=== PATIENT | male | born 1955 | race African-American/Black ===

== ENCOUNTER 2023-10-09 07:27 | Outpatient (REF) | payer SELFPAY ==
--- NOTE | ~2023-10-09 | XR_ITS ---
EXAMINATION: XR KNEE, LEFT XR HIP, LEFT CLINICAL INFORMATION: Pain in left knee. COMPARISON: None available. TECHNIQUE: Frog-lateral view of the left hip. 3 AP views of bilateral hips. 3 views of the left knee. FINDINGS: LEFT KNEE: Heart joint effusion. Left knee total arthroplasty. Hardware appears intact. Alignment is satisfactory. LEFT HIP: Minimal images of the lower spine demonstrate inferior aspect of spinal hardware. Moderate degenerative changes in the left sacroiliac joint greater than right. 3 AP views of the right hip demonstrate total knee arthroplasty which appears intact on views provided. Calcific/ossific densities in the soft tissues lateral to the right acetabulum. Lateral and 3 AP views of the left hip demonstrate left total hip arthroplasty which appears intact and in satisfactory alignment. Pubic symphysis is maintained. XR/XR knee LT 3V IMPRESSION: 1. Left knee total arthroplasty. Hardware appears intact. Alignment is satisfactory. 2. Left total hip arthroplasty appears intact and in satisfactory alignment. 3. Moderate degenerative changes left sacroiliac joint.
--- NOTE | ~2023-10-09 | XR_ITS ---
EXAMINATION: XR KNEE, LEFT XR HIP, LEFT CLINICAL INFORMATION: Pain in left knee. COMPARISON: None available. TECHNIQUE: Frog-lateral view of the left hip. 3 AP views of bilateral hips. 3 views of the left knee. FINDINGS: LEFT KNEE: Heart joint effusion. Left knee total arthroplasty. Hardware appears intact. Alignment is satisfactory. LEFT HIP: Minimal images of the lower spine demonstrate inferior aspect of spinal hardware. Moderate degenerative changes in the left sacroiliac joint greater than right. 3 AP views of the right hip demonstrate total knee arthroplasty which appears intact on views provided. Calcific/ossific densities in the soft tissues lateral to the right acetabulum. Lateral and 3 AP views of the left hip demonstrate left total hip arthroplasty which appears intact and in satisfactory alignment. Pubic symphysis is maintained. XR/XR hip LT min 2V IMPRESSION: 1. Left knee total arthroplasty. Hardware appears intact. Alignment is satisfactory. 2. Left total hip arthroplasty appears intact and in satisfactory alignment. 3. Moderate degenerative changes left sacroiliac joint.
== END 2023-10-09 07:28 | disposition home or self-care (01) ==
LOC: HO.HOSX 07:27
PROVIDERS: Visit Provider Orthopaedic Surgery
DX: M25.562 Pain in left knee (principal); M25.552 Pain in left hip
CPT/HCPCS: 73502; 73562; 99202

== ENCOUNTER 2023-10-09 09:19 | Outpatient (AMB) | payer MEDICARE, SELFPAY ==
--- NOTE | 2023-10-09 09:22 | MHC.OFFVIS ---
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 Patient reports he is here for a second opinion. The patient states that he has been told that could undergo revision surgery which may or may not relieve his symptoms. He denies any fevers or chills. The patient states that ?I feel like something is wrong with the knee?. Allergies morphine Allergy (Intermediate, Verified 10/09/23 09:48) Itching aspirin Allergy (Mild, Verified 10/09/23 09:48) Unknown [facility] Surgical History (Updated 10/09/23 @ 09:52 by Johana Medellin CMA) History of back surgery Hx of right knee surgery Hx of left knee surgery History of hip surgery History of hip surgery (~07/2021) Social History (Updated 10/09/23 @ 09:50 by Johana Medellin CMA) Patient Tobacco Use Status: Current everyday Tobacco user Current occupational status: retired Current occupation: Right hand dominate Physical Exam Vital Signs: BMI result Body Mass Index 24.0 Const Other: Well-nourished well-developed very friendly male awake alert and oriented x3 in no acute distress Extrem Other: Bilateral lower extremity examination shows good capillary refill, no skin lesions noted, normal sensation light touch Left knee examination shows the surgical incision is well healed, no erythema, a minimal effusion, range of motion from -10 degrees to 90 degrees, no instability Results Reviewed Results Reviewed: X-rays of the patient's left knee show a total knee arthroplasty in good position with no signs of loosening, no acute bony abnormalities Assessment & Plan Assessment & Plan (1) Left knee pain: Code(s): M25.562 - Pain in left knee Category: Medical Plan Mr. Banerjee presents with continued discomfort after undergoing left total knee replacement surgery at [facility] in 2021. The patient does have a fairly significant flexion contracture. I discussed with the patient the options of seeing Dr. Morales for a possible nerve injection procedure versus being evaluated by Dr. Etienne for possible scar removal and possible implant revision surgery. The patient states that he would like to see Dr. Etienne. Thus, I will arrange for that appointment. He will follow-up as instructed. Feel free to call me at any time should questions regarding his orthopedic management arise. I spent 22 minutes in reviewing the patient's records and imaging studies, seeing the patient and documenting in the medical record. Orders: Orders XR hip LT min 2V Today M25.552 - Pain in left hip XR knee LT 3V Today M25.562 - Pain in left knee Coding Level of Care Code New Pt Level 2 (03146) Diagnoses Left knee pain M25.562
[2023-10-09 09:43] VITALS: BMI 24.0
== END 2023-10-09 10:01 | disposition home or self-care (01) ==
PROVIDERS: Visit Provider Orthopaedic Surgery
DX: M25.562 Pain in left knee (principal)
CPT/HCPCS: 99202

== ENCOUNTER 2023-10-24 08:58 | Outpatient (AMB) | payer MEDICARE, SELFPAY ==
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
[2023-10-24 09:02] VITALS: BMI 24.0
== END 2023-10-24 09:23 | disposition home or self-care (01) ==
PROVIDERS: Visit Provider Orthopaedic Surgery
DX: M24.569 Contracture, unspecified knee (principal); D36.10 Benign neoplasm of peripheral nerves and autonomic nervous system, unspecified
CPT/HCPCS: 99214

== ENCOUNTER → 2023-10-24 08:58 | Outpatient (BNVA) | payer MEDICARE, SELFPAY | PROVIDERS: Visit Provider Orthopaedic Surgery | DX: M24.569 Contracture, unspecified knee (principal); D36.10 Benign neoplasm of peripheral nerves and autonomic nervous system, unspecified | CPT/HCPCS: 99212 ==

== ENCOUNTER 2024-01-17 12:31 | Outpatient (REF) | payer MEDICARE, SELFPAY ==
--- NOTE | ~2024-01-17 | XR_ITS ---
EXAMINATION: XR SHOULDER, RIGHT CLINICAL INFORMATION: Pain in right shoulder COMPARISON: None available. TECHNIQUE: Three views of the right shoulder. FINDINGS: Moderate to marked degenerative changes in the acromioclavicular joint with joint space narrowing and hypertrophic change. Glenohumeral alignment preserved. XR/XR shoulder RT min 2V IMPRESSION: Moderate to marked degenerative changes in the acromioclavicular joint. Electronically signed by: Laura Kenny MD 02/11/2024 01:37 PM EDT
== END 2024-01-17 12:32 | disposition home or self-care (01) ==
LOC: HO.HOSX 12:31
PROVIDERS: Visit Provider Physician Assistant
DX: M24.111 Other articular cartilage disorders, right shoulder (principal)
CPT/HCPCS: 73030; 99202

== ENCOUNTER 2024-01-17 12:49 | Outpatient (AMB) | payer MEDICARE, SELFPAY ==
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
== END 2024-01-17 14:54 | disposition home or self-care (01) ==
PROVIDERS: PCP Student in an Organized Health Care Education/Training Program; Visit Provider Physician Assistant
DX: M77.8 Other enthesopathies, not elsewhere classified (principal)
CPT/HCPCS: 99203

== ENCOUNTER 2024-01-28 10:55 | Outpatient (AMB) | payer MEDICARE, SELFPAY ==
[2024-01-28 10:56] VITALS: BP 108/78; PULSE 64; O2SAT 98; BMI 22.5
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
== END 2024-01-28 11:41 | disposition home or self-care (01) ==
PROVIDERS: PCP Student in an Organized Health Care Education/Training Program; Referring Provider Student in an Organized Health Care Education/Training Program; Visit Provider Internal Medicine Nephrology
DX: I12.9 Hypertensive chronic kidney disease with stage 1 through stage 4 chronic kidney disease, or unspecified chronic kidney disease (principal); N18.32 Chronic kidney disease, stage 3b
CPT/HCPCS: 99205

== ENCOUNTER → 2024-01-28 10:55 | Outpatient (BNVA) | payer MEDICARE, SELFPAY | PROVIDERS: PCP Student in an Organized Health Care Education/Training Program; Referring Provider Student in an Organized Health Care Education/Training Program; Visit Provider Internal Medicine Nephrology ==

== ENCOUNTER 2024-01-28 11:39 | Outpatient (REF) | payer MEDICARE, SELFPAY ==
[2024-01-28 14:40] LABS: MANUAL DIFF FLAG NO
[2024-01-28 14:47] LABS: Basophils Percent Auto 0.5 % (0-2); Eosinophils Absolute Auto 0.1 X10*3/uL (0.0-0.4); Eosinophils Percent Auto 1.1 % (0-4); Hemoglobin 15.4 g/dl (14.0-18.0); Imm Gran Abs Auto 0.01 X10*3/uL (0.00-0.03); Imm Gran Pct Auto 0.2 % (0.0-0.4); Lymphocytes Absolute Auto 1.4 X10*3/uL (1.2-4.9); Lymphocytes Percent Auto 24.5 % (20-40); Mean Corpuscular HGB Conc 32.1 g/dl (31.0-36.0); Mean Corpuscular Hemoglobin 28.7 pg (27.0-33.0); Mean Corpuscular Volume 89.4 fL (80.0-98.0); Mean Platelet Volume 10.5 fL (9.4-12.4); Monocytes Absolute Auto 0.5 X10*3/uL (0.1-1.2); Monocytes Percent Auto 8.3 % (2-11); Neutrophils Absolute Auto 3.6 x10*3/uL (2.0-8.3); Neutrophils Percent Auto 65.4 % (45-73); Platelet Count 187 X10*3/uL (160-400); Red Blood Count 5.37 X10*6/uL (4.60-5.80); Red Cell Distribution Width 13.9 % (11.0-16.0); White Blood Count 5.5 X10*3/uL (4.8-10.8)
[2024-01-28 15:13] LABS: Protein/Creatinine Ratio, Ur 0.04 (<0.2); Total Protein Urine Random 9 mg/dL (<12)
[2024-01-28 15:17] LABS: Anion Gap 13 (12-20); Blood Urea Nitrogen 15 mg/dL (9-16); Calcium 9.4 mg/dL (8.4-10.2); Carbon Dioxide 27 mmol/L (22-29); Chloride 106 mmol/L (96-108); Estimated Glomerular Filt Rate 41; Iron 76 mcg/dL (45-160); Percent Iron Saturation 29 % (15-50); Phosphorus 3.6 mg/dL (2.7-4.5); Potassium 5.5 mmol/L (3.3-5.1); Sodium 140 mmol/L (135-145); Total Iron Binding Capacity 264 mcg/dL (228-428); Unsaturated Iron Binding 188 ug/dL
[2024-01-28 15:31] LABS: Parathyroid Hormone Intact 110.5 pg/mL (8.7-77.1)
[2024-01-28 15:33] LABS: Ferritin 131 ng/mL (20-250)
[2024-01-29 08:09] LABS: HBc Num1 0.09 S/CO (0.00-0.79); Hepatitis B Core Antibody Nonreactive (Nonreactive); ~Hepatitis C Antibody Nonreactive (Nonreactive)
[2024-01-31 10:38] LABS: IgA 126 mg/dL (70-320); IgG 1073 mg/dL (600-1540); IgM 26 mg/dL (50-300)
== END 2024-01-28 11:40 | disposition home or self-care (01) ==
LOC: HO.HKASLDS 11:39
PROVIDERS: Visit Provider Internal Medicine Nephrology
DX: N18.32 Chronic kidney disease, stage 3b (principal); I10 Essential (primary) hypertension
CPT/HCPCS: 80051; 82310; 82565; 82570; 82728; 82784; 83540; 83970; 84100; 84156; 84520; 85025; 86334; 86335; 86704; 86803; 99202

== ENCOUNTER 2024-02-05 08:42 | Outpatient (REF) | payer MEDICARE, SELFPAY ==
--- NOTE | ~2024-02-05 | US_ITS ---
EXAMINATION: ULTRASOUND RENAL WITH DOPPLER CLINICAL INFORMATION: Chronic kidney disease, stage IIIB. COMPARISON: None. TECHNIQUE: Real-time grayscale, color Doppler, and duplex Doppler evaluation of the kidneys and renal vasculature was performed. FINDINGS: RENAL MEASUREMENTS: Right: 9.9 x 4.8 x 7.1 cm (Sag x AP x TV) Left: 8.8 x 5.3 x 4.4 cm (Sag x AP x TV) Multiple benign appearing simple and thinly septated cysts bilaterally for which no imaging follow-up is recommended. DOPPLER INTERROGATION: AORTA: Mid aorta: 50 cm/sec RIGHT MAIN RENAL ARTERY: Proximal: 101 cm/sec Mid: 112 cm/sec Distal: 130 cm/sec LEFT MAIN RENAL ARTERY: Proximal: 48 cm/sec Mid: 108 cm/sec Distal: 123 cm/sec RENAL-AORTIC RATIO (RAR): Right: 2.6 Left: 2.5 SEGMENTAL RESISTIVE INDICES: Right: 0.59-0.66 Left: 0.53-0.58 RENAL VEINS: Right: Patent with normal waveform. Left: Patent with normal waveform. US/US renal doppler IMPRESSION: No evidence of hemodynamically significant renal artery stenosis. Small left kidney as compared to the right. Electronically signed by: Bigg Adam MD 02/10/2024 08:20 AM EDT
--- NOTE | ~2024-02-05 | US_ITS ---
EXAMINATION: ULTRASOUND RENAL WITH DOPPLER CLINICAL INFORMATION: Chronic kidney disease, stage IIIB. COMPARISON: None. TECHNIQUE: Real-time grayscale, color Doppler, and duplex Doppler evaluation of the kidneys and renal vasculature was performed. FINDINGS: RENAL MEASUREMENTS: Right: 9.9 x 4.8 x 7.1 cm (Sag x AP x TV) Left: 8.8 x 5.3 x 4.4 cm (Sag x AP x TV) Multiple benign appearing simple and thinly septated cysts bilaterally for which no imaging follow-up is recommended. DOPPLER INTERROGATION: AORTA: Mid aorta: 50 cm/sec RIGHT MAIN RENAL ARTERY: Proximal: 101 cm/sec Mid: 112 cm/sec Distal: 130 cm/sec LEFT MAIN RENAL ARTERY: Proximal: 48 cm/sec Mid: 108 cm/sec Distal: 123 cm/sec RENAL-AORTIC RATIO (RAR): Right: 2.6 Left: 2.5 SEGMENTAL RESISTIVE INDICES: Right: 0.59-0.66 Left: 0.53-0.58 RENAL VEINS: Right: Patent with normal waveform. Left: Patent with normal waveform. US/US renal BI IMPRESSION: No evidence of hemodynamically significant renal artery stenosis. Small left kidney as compared to the right. Electronically signed by: Bigg Adam MD 02/10/2024 08:20 AM EDT
== END 2024-02-05 08:43 | disposition home or self-care (01) ==
LOC: HO.US 08:42
PROVIDERS: PCP Student in an Organized Health Care Education/Training Program; Visit Provider Internal Medicine Nephrology
DX: I12.9 Hypertensive chronic kidney disease with stage 1 through stage 4 chronic kidney disease, or unspecified chronic kidney disease (principal); N18.32 Chronic kidney disease, stage 3b
CPT/HCPCS: 76775; 93975

== ENCOUNTER 2024-03-17 10:38 | Outpatient (AMB) | payer MEDICARE, SELFPAY ==
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
[2024-03-17 10:43] VITALS: BP 122/80; PULSE 66; O2SAT 98; BMI 22.9
== END 2024-03-17 11:01 | disposition home or self-care (01) ==
PROVIDERS: PCP Student in an Organized Health Care Education/Training Program; Visit Provider Internal Medicine Nephrology
DX: N18.31 Chronic kidney disease, stage 3a (principal); I10 Essential (primary) hypertension; E87.5 Hyperkalemia
CPT/HCPCS: 99214

== ENCOUNTER → 2024-03-17 10:38 | Outpatient (BNVA) | payer MEDICARE, SELFPAY | PROVIDERS: PCP Student in an Organized Health Care Education/Training Program; Visit Provider Internal Medicine Nephrology | DX: I12.9 Hypertensive chronic kidney disease with stage 1 through stage 4 chronic kidney disease, or unspecified chronic kidney disease (principal); N18.31 Chronic kidney disease, stage 3a; E87.5 Hyperkalemia | CPT/HCPCS: 99212 ==

== ENCOUNTER 2024-06-23 09:37 | Outpatient (REF) | payer MEDICARE, SELFPAY ==
[2024-06-23 18:38] LABS: Anion Gap 12 (12-20); Blood Urea Nitrogen 20 mg/dL (9-16); Carbon Dioxide 24 mmol/L (22-29); Chloride 111 mmol/L (96-108); Estimated Glomerular Filt Rate 42; Potassium 4.6 mmol/L (3.3-5.1); Sodium 142 mmol/L (135-145)
[2024-06-23 18:46] LABS: Vitamin D 25-OH Total 35.5 ng/mL (>30)
[2024-06-23 18:50] LABS: Parathyroid Hormone Intact 101.7 pg/mL (8.7-77.1)
== END 2024-06-23 09:38 | disposition home or self-care (01) ==
LOC: HO.HKASLDS 09:37
PROVIDERS: PCP Student in an Organized Health Care Education/Training Program; Visit Provider Internal Medicine Nephrology
DX: I12.9 Hypertensive chronic kidney disease with stage 1 through stage 4 chronic kidney disease, or unspecified chronic kidney disease (principal); N18.31 Chronic kidney disease, stage 3a; E87.5 Hyperkalemia; E87.20 Acidosis, unspecified
CPT/HCPCS: 36415; 80051; 82306; 82565; 83970; 84520; 99212

== ENCOUNTER 2024-06-23 09:37 | Outpatient (AMB) | payer MEDICARE, SELFPAY ==
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
[2024-06-23 09:47] VITALS: BP 122/80; PULSE 59; O2SAT 97; BMI 23.8
== END 2024-06-23 10:07 | disposition home or self-care (01) ==
PROVIDERS: PCP Student in an Organized Health Care Education/Training Program; Visit Provider Internal Medicine Nephrology
DX: E87.5 Hyperkalemia (principal); I10 Essential (primary) hypertension; N18.32 Chronic kidney disease, stage 3b; E87.20 Acidosis, unspecified
CPT/HCPCS: 99214

== ENCOUNTER 2024-09-10 09:45 | Outpatient (AMB) | payer MEDICARE, SELFPAY ==
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
[2024-09-10 10:16] VITALS: BP 120/82; PULSE 58; O2SAT 97; BMI 23.6
--- OUTSIDE RECORDS SUMMARY | 2024-09-10 11:58 | XMS_ITS | Clinical Summary ---
Author Organization [facility] Address [address] [place] [address] [address] [place] [address] Phone Care Team Providers Care Patent Searcher Name Role Phone Unavailable Primary Care Provider Unavailabl e Allergies Active Allergy Reactions Criticality Noted Date Comments Aspirin Other (see comments) 03/09/2021 Morphine Other (see comments) 03/09/2021 Medications oxyCODONE (ROXICODONE) 10 MG immediate release tablet 10/19/2020 Acti ve simvastatin (ZOCOR) 40 MG tablet Take 40 mg by mouth 1 (one) time each day in the evening 09/05/2020 Active NIFEdipine XL (PROCARDIA XL) 30 MG 24 hr tabletIndicatio ns:Hypertension Take 3 tablets (90 mg total) by mouth 1 (one) time each day Do not crush, chew, or split. 90 tablet 3 12/31/2023 5 Active Active Problems Problem Noted Date Diagnosed Date H/O: hypertension 08/28/2021 Urine microalbumin detected 08/28/2021 Stage 3a chronic kidney disease 10/26/2020 Hypertension 10/26/2020 Hyperlipidemia 10/26/2020 Vitamin D deficiency due to chronic kidney disea se 10/26/2020 Resolved Problems Problem Noted Date Diagnosed Date Resolved Date Bradycardia 08/28/2021 04/11/2022 Chronic low back pain 08/28/20212021 Osteoarthritis of knee 08/28/202104/11 Tubular adenoma of colon 08/28/2021 Chronic kidney disease, stage 2 (mild) 03/09/2021 04/11/2022 Encounters Date Type Department Care Team Description 06/17/2024 Orders Only [facility] [address] [place] [address] Anali Clement ARNP Stage 3a chronic kidney disease (HCC); Hypertension from Last 3 Months Immunizations Name Administration Dates Next Due Influenza Whole 05/27/2012 Satinder SARS-COV-2 09/24/2020 Pfizer SARS-COV-2 04/24/2021 Pneumococcal Polysaccharide 10/19/2019 Shingrix 04/17/2021 Tdap 01/27/2021,02/27/2018 Tetanus Toxoid, Unspecified 10/07/2008 Family History Medical History Relation Comments Cancer Father prostate Stroke Father Dementia Mother Diabetes Mother Hypertension Mother Stroke Mother Relation Status Comments Father Mother Alive Social History Tobacco Use Types Packs/Day Years Used Date Smoking Tobacco: Every Day Cigarettes Smokeless Tobacco: Former Tobacco Cessation:Ready to Q uit: Not Asked; Counseling Given: Not Answered Alcohol Use Standard Drinks/Week Comments Not Currently 0 (1 standard drink = 0.6 oz pur e alcohol) Sex and Gender Information Value Date Recorded Sex Assigned at Not on file Legal Sex Male 4:55 PM EST Gender Identity Not on file Sexual Orientation Not on file Last Filed Vital Signs Vital Sign Reading Time Taken Comments Blood Pressure 98/60 12/31/2023 9:55 AM EDT Pulse 68 12/31/2023 9:55 AM EDT Temperature - - Respiratory Rate - - Oxygen Saturation 96% 10/10/2022 10:58 AM EDT Inhaled Oxygen Concentration - - Weight 73.6 kg (162 lb 3.2 oz) 12/31/2023 9:55 A M EDT Height 175.3 cm (5' 9 ) 08/28/2021 2:45 PM EDT Body Mass Index 23.95 08/28/2021 2:45 PM EDT Plan of Treatment Health Maintenance Due Date Last Done Comments Colorectal Cancer Screening: Annual FOBT 2005 Colorectal Cancer Screening: Colonoscopy 2005 Colorectal Cancer Screening: Sigmoidoscopy 2005 Influenza Vaccine (#1) 2024 3, 04/26/2022, 05/27/2012 Pneumococcal Vaccine: 65+ Years (3 of 3 - PPSV23 or PCV20) 10/18/2024 07/21/2023, 10/19/2019 Hepatitis B Vaccine Aged Out No longe r eligible based on patient's age to complete this topic Insurance [employer] M[employer] ADV PPO ([id number]) [employer] M[employer] ADV PPO ([id number])
== END 2024-09-10 10:31 | disposition home or self-care (01) ==
LOC: HO.HKAS 09:45
PROVIDERS: PCP Student in an Organized Health Care Education/Training Program; Visit Provider Internal Medicine Nephrology
DX: E87.20 Acidosis, unspecified (principal); E87.5 Hyperkalemia; N18.31 Chronic kidney disease, stage 3a; I10 Essential (primary) hypertension
CPT/HCPCS: 99214

== ENCOUNTER 2024-09-10 09:45 | Outpatient (REF) | payer MEDICARE, SELFPAY ==
[2024-09-10 18:17] LABS: Anion Gap 12 (12-20); Blood Urea Nitrogen 25 mg/dL (9-16); Carbon Dioxide 25 mmol/L (22-29); Chloride 111 mmol/L (96-108); Estimated Glomerular Filt Rate 39; Potassium 4.8 mmol/L (3.3-5.1); Sodium 143 mmol/L (135-145)
== END 2024-09-10 09:46 | disposition home or self-care (01) ==
LOC: HO.HKASLDS 09:45
PROVIDERS: PCP Student in an Organized Health Care Education/Training Program; Visit Provider Internal Medicine Nephrology
DX: E87.20 Acidosis, unspecified (principal); E87.5 Hyperkalemia; I12.9 Hypertensive chronic kidney disease with stage 1 through stage 4 chronic kidney disease, or unspecified chronic kidney disease; N18.31 Chronic kidney disease, stage 3a
CPT/HCPCS: 36415; 80051; 82565; 84520; 99212